=== PATIENT | male | born 1955 ===

== ENCOUNTER 2019-02-06 06:19 | Emergency (ER) | payer BC ==
--- NOTE | 2019-02-06 06:48 | C.PDOC ---
History Of Present Illness patient with hx of varicose veins to his lower legs c/o persistant bleeding after scratching a small scabb on his left lower leg. he held pressure but the site did not stop bleeding. he takes asa daily but deneies any other blood thinner. Time Seen by Provider: 02/06/19 06:45 Chief Complaint (Nursing): Abnormal Skin Integrity History Per: Patient History/Exam Limitations: no limitations Onset/Duration Of Symptoms: Mins Current Symptoms Are (Timing): Still Present Location Of Injury: Left: Leg Severity: Mild Past Medical History Vital Signs: Last Vital Signs Temp 98.3 F 02/06/19 06:28 Pulse 98 H 02/06/19 06:28 Resp 20 02/06/19 06:28 BP 171/100 H 02/06/19 06:28 Pulse Ox 98 02/06/19 06:28 Primary Care Provider: Shaik Zamora - Medical History PMH: HTN Denies: Chronic Kidney Disease Family History: States: CAD, Hypertension - Social History Hx Alcohol Use: No Hx Substance Use: No - Immunization History Hx Tetanus Toxoid Vaccination: No Hx Influenza Vaccination: Yes (2 years ago) Hx Pneumococcal Vaccination: No Review Of Systems Except As Marked, All Systems Reviewed And Found Negative. Skin: Positive for: Other (abrasion) Physical Exam - Physical Exam Appears: Well, Non-toxic Skin: Normal Color, Warm, Dry Extremity: Normal ROM, No Tenderness, Other (2mm abrasion noted to left anterior leg, no active bleeding, varicose veins noted throughout) Neurological/Psych: Oriented x3, Normal Speech, Normal Cognition ED Course And Treatment O2 Sat by Pulse Oximetry: 98 Progress Note: bleeding controlled with applying a small dab of dermabond to the area. Disposition Counseled Patient/Family Regarding: Diagnosis, Need For Followup - Disposition Disposition: HOME/ ROUTINE Disposition Time: 06:51 Condition: STABLE Instructions: Treatment of Varicose Veins of the Leg Forms: Gen Discharge Inst Nepalese, [employer] (Nepalese) Print Language: ICELANDIC - Clinical Impression Clinical Impression: Bleeding from varicose veins of left lower extremity
[2019-02-06 06:55] VITALS: TEMP 98.3
[2019-02-06 07:00] VITALS: BP 160/90; PULSE 80; RESP 14; O2SAT 99
== END 2019-02-06 07:00 | disposition home or self-care (01) ==
LOC: C.ER 06:19
DX: I83.892 Varicose veins of left lower extremity with other complications (principal); I10 Essential (primary) hypertension; Z82.49 Family history of ischemic heart disease and other diseases of the circulatory system; Z87.891 Personal history of nicotine dependence